=== PATIENT | female | born 1980 | race Caucasian/White ===

== ENCOUNTER 2019-05-14 17:52 | Observation (INO) | payer BC ==
[~2019-05-14] VITALS: Ht 170.2 cm; Wt 79.1 kg
--- NOTE | 2019-05-14 18:27 | NUR ---
Pt presents to ED with c/o "vaginal spotting for a few weeks and cramping after sex with boyfriend." Pt states, "I took a test on and it said I was , but I don't know because I have never been before. I couldn't get into by OB's office so they told me to come here." Pt denies heavy vaginal bleeding, cp, sob, trauma, syncope, n/v/d. CMS intact. NADN. No needs expressed. Pt ambulates with steady gait and balance to restroom. No obvious defecits observed. Call light within reach.
[2019-05-14 19:00] LABS: BASOPHILS # (AUTO) 0.04 x10^3/uL (0-0.1); BASOPHILS % (AUTO) 0 % (0-1); EOSINOPHILS # (AUTO) 0.53 x10^3/uL (0-0.4); EOSINOPHILS % (AUTO) 6 % (1-7); LYMPHOCYTES % (AUTO) 27 % (22-44); MD NO; MEAN CORPUSCULAR HEMOGLOBIN 28.1 pg (27.0-34.8); MEAN CORPUSCULAR HGB CONC 32.8 g/dL (32.4-35.8); MEAN CORPUSCULAR VOLUME 85.7 fL (80-100); MEAN PLATELET VOLUME 7.4 fL (7.4-10.4); MONOCYTES # (AUTO) 0.66 x10^3/uL (0.2-0.8); MONOCYTES % (AUTO) 7 % (2-9); NEUTROPHILS # (AUTO) 5.45 x10^3/uL (1.8-6.8); NEUTROPHILS % (AUTO) 59 % (42-75); PLATELET COUNT 332 x10^3/uL (130-400); RED CELL DISTRIBUTION WIDTH 13.6 % (9.6-15.2)
--- NOTE | 2019-05-14 19:00 | NUR ---
Provided bedside report to RICKY Rangel. All questions answered. NADN. No needs expressed. RICKY Rangel to assume care of pt.
--- NOTE | 2019-05-14 19:02 | NUR ---
report from alie assumed care of pt, pt in nad
[2019-05-14 19:13] LABS: ALBUMIN 3.9 g/dL (3.4-5.0); ANION GAP 7 mmol/L (5-15); CALCIUM 9.6 mg/dL (8.5-10.1); CHLORIDE 107 mmol/L (98-107); CREATININE 0.71 mg/dL (0.55-1.02)
--- NOTE | 2019-05-14 21:15 | NUR ---
at bedside for recheck
--- NOTE | 2019-05-14 21:56 | NUR ---
awaiting hide handler
[2019-05-14] MEDS ORDERED: FENTANYL PF 100 MCG/2ML ONE ×2 (22:15→23:51)
[2019-05-14] MEDS ORDERED: BUPIVACAINE/PF 0.25% ONE (22:16)
[2019-05-14] MEDS ORDERED: MIDAZOLAM 1 MG/ML, 2ML ONE (22:19)
[2019-05-14] MEDS ORDERED: SCOPOLAMINE PATCH, 1.5MG PATCH.TD72 TD ONE (22:45)
[2019-05-14] MEDS ORDERED: KETOROLAC 30 MG/1 ML ONE (22:45)
[2019-05-14] MEDS ORDERED: BUPIVACAINE/PF 0.25% INFIL ONE (23:17)
[2019-05-14] MEDS ORDERED: MEPERIDINE/PF 50 MG/ML ONE (23:30)
[2019-05-14] MEDS ORDERED: ROCURONIUM 10MG/ML,5ML ONE (23:33)
[2019-05-14] MEDS ORDERED: CEFAZOLIN 1,000 MG ONE (23:33)
[2019-05-14] MEDS ORDERED: DEXAMETHASONE 4 MG/ML, 1ML ONE (23:33)
[2019-05-14] MEDS ORDERED: NEOSTIGMINE 1 MG/ML, 10ML ONE (23:33)
[2019-05-14] MEDS ORDERED: SUCCINYLCHOLINE 20 MG/ML, 10ML ONE (23:33)
[2019-05-14] MEDS ORDERED: ONDANSETRON 2MG/ML, 2ML ONE (23:33)
[2019-05-14] MEDS ORDERED: PROPOFOL 10 MG/ML, 20ML ONE (23:33)
[2019-05-14] MEDS ORDERED: GLYCOPYRROLATE 0.2MG/1ML, 5ML ONE (23:33)
[2019-05-14] MEDS ORDERED: ACETAMINOPHEN 650 MG/20.3 ML UDC ONE (23:50)
[2019-05-14] MEDS ORDERED: OXYcodone 5 MG/5 ML ORAL.SOL UDC ONE (23:51)
[2019-05-14] MEDS ORDERED: ACETAMINOPHEN 325 MG TABLET ONE (23:54)
[2019-05-14] MEDS: FENTANYL PF 100 MCG/2ML IV PRN (23:57)
[2019-05-15] MEDS ORDERED: DIAZEPAM 5 MG/ML, 2ML IVPush PRN
[2019-05-15] MEDS ORDERED: PROMETHAZINE 25 MG/ML, 1ML IV PRN
[2019-05-15] MEDS ORDERED: hydrALAzine 20 MG/ML, 1ML IV PRN
[2019-05-15] MEDS ORDERED: LABETALOL 5MG/ML, 20ML IV PRN
[2019-05-15] MEDS ORDERED: ACETAMINOPHEN 325 MG TABLET PO PRN
[2019-05-15] MEDS ORDERED: ALBUTEROL SULFATE 2.5 MG/3 ML NPPB PRN
[2019-05-15] MEDS ORDERED: MEPERIDINE/PF 25MG/0.5ML IVPush PRN
[2019-05-15] MEDS ORDERED: HYDROmorphone 2 MG/ML, 1ML IVPush PRN
[2019-05-15] MEDS: FENTANYL PF 100 MCG/2ML IV PRN (00:04)
[2019-05-15] MEDS ORDERED: OXYC-302 PO (01:09)
[2019-05-15] MEDS ORDERED: IBUP-1222 PO (01:11)
[2019-05-15] MEDS ORDERED: ONDA4TAB7 PO (01:12)
[2019-05-15 01:23] VITALS: BP 105/66
[2019-05-15] MEDS ORDERED: OXYcodone 5 MG/5 ML ORAL.SOL UDC PO PRN ×2 (01:30)
[2019-05-15] MEDS ORDERED: ONDANSETRON 2MG/ML, 2ML IV PRN (01:30)
[2019-05-15] MEDS ORDERED: KETOROLAC 30 MG/1 ML IV PRN (01:30)
[2019-05-15 03:31] VITALS: BP 109/70
[2019-05-15 03:38] VITALS: BP 112/77
== END 2019-05-15 04:31 | disposition home or self-care (01) ==
LOC: ED 21:00 → 4NOR 05-15 00:26 → ED 05-15 01:07
PROVIDERS: ADMIT Obstetrics & Gynecology; ATTEND Obstetrics & Gynecology
DX: O00.102 Left tubal pregnancy without intrauterine pregnancy (principal); K66.1 Hemoperitoneum; N83.291 Other ovarian cyst, right side; Z87.410 Personal history of cervical dysplasia
CPT/HCPCS: 36415; 59151; 76801; 80048; 82040; 84702; 85025; 86901; 88305; 96374; 99291; G0378; J0330; J0690; J1100; J1885; J2175; J2250; J2405; J2704; J2710; J3010; J3490